=== PATIENT | female | born 1965 | race Caucasian/White ===

== ENCOUNTER 2021-03-13 12:44 | Emergency (ER) | payer OTHER ==
[~2021-03-13] VITALS: Ht 160 cm; Wt 101.6 kg
== END 2021-03-13 16:27 | disposition home or self-care (01) ==
LOC: ER1 12:44
DX: Z23 Encounter for immunization (principal); U07.1 COVID-19; Z90.710 Acquired absence of both cervix and uterus; Z79.899 Other long term (current) drug therapy; Z88.2 Allergy status to sulfonamides
CPT/HCPCS: 99283; M0239

== ENCOUNTER → 2021-03-21 | Outpatient (CLI) | payer OTHER ==
[2021-03-21 13:31] LABS: HEMOGLOBIN 13.6 gm/dl (12.3-15.3); WHITE BLOOD COUNT 11.6 K/UL (4.5-11.0)
[2021-03-21 14:32] LABS: BUN/CREATININE RATIO 37 (0-10)
== END ==
LOC: LAB 12:31
PROVIDERS: Emergency Medicine
DX: U07.1 COVID-19 (principal); J20.9 Acute bronchitis, unspecified; M62.81 Muscle weakness (generalized); R53.83 Other fatigue; R91.1 Solitary pulmonary nodule
CPT/HCPCS: 71046; 80053; 84443; 85027; 85379

== ENCOUNTER → 2021-05-09 | Outpatient (CLI) | payer OTHER ==
[2021-05-09 10:43] LABS: HEMOGLOBIN 13.1 gm/dl (12.3-15.3); RED BLOOD COUNT 4.61 M/UL (4.00-5.10); WHITE BLOOD COUNT 8.5 K/UL (4.5-11.0)
[2021-05-09 11:29] LABS: BUN/CREATININE RATIO 36 (0-10)
[2021-05-10 07:11] LABS: VITAMIN D, 25-HYDROXY 66.9 ng/mL (30.0-100.0)
[2021-05-10 08:13] LABS: PROGESTERONE 0.6 ng/mL (.)
[2021-05-14 20:09] LABS: TESTOSTERONE, SERUM 38 ng/dL (4-50)
== END ==
LOC: LAB 09:47
PROVIDERS: Nurse Practitioner Family
DX: E55.9 Vitamin D deficiency, unspecified (principal); N95.1 Menopausal and female climacteric states; Z01.419 Encounter for gynecological examination (general) (routine) without abnormal findings; Z79.890 Hormone replacement therapy
CPT/HCPCS: 36415; 80053; 82627; 83036; 84144; 84402; 84403; 84443; 85025

== ENCOUNTER → 2021-06-06 | Outpatient (CLI) | payer OTHER ==
[2021-06-06 15:17] LABS: HEMOGLOBIN 13.3 gm/dl (12.3-15.3); RED BLOOD COUNT 4.63 M/UL (4.00-5.10)
[2021-06-06 15:40] LABS: BUN/CREATININE RATIO 24 (0-10)
== END ==
LOC: LAB 13:53
PROVIDERS: Nurse Practitioner
DX: R07.89 Other chest pain (principal); R53.83 Other fatigue
CPT/HCPCS: 80053; 84443; 85025; 85379; 93005

== ENCOUNTER → 2021-06-17 | Outpatient (CLI) | payer OTHER ==
[2021-06-17 10:44] LABS: RED BLOOD COUNT 4.52 M/UL (4.00-5.10); WHITE BLOOD COUNT 6.6 K/UL (4.5-11.0)
[2021-06-17 11:33] LABS: BUN/CREATININE RATIO 27 (0-10)
[2021-06-18 07:13] LABS: ANTISTREPTOLYSIN O AB 84.5 IU/mL (0.0-200.0); RHEUMATOID ARTHRITIS FACTOR <10.0 IU/mL (0.0-13.9); VITAMIN D, 25-HYDROXY 71.2 ng/mL (30.0-100.0)
[2021-06-18 08:15] LABS: ESTRADIOL 23.1 pg/mL (.); FSH 50.5 mIU/mL (.); LUTEINIZING HORMONE(LH) 37.5 mIU/mL (.); PROLACTIN 10.4 ng/mL (4.8-23.3)
[2021-06-18 10:15] LABS: INSULIN 6.8 uIU/mL (2.6-24.9)
[2021-06-19 11:15] LABS: CREATININE, URINE 131.4 mg/dL (Not Estab.)
[2021-06-21 10:14] LABS: TESTOSTERONE, SERUM 10 ng/dL (4-50)
== END ==
LOC: LAB 09:30
PROVIDERS: Nurse Practitioner Family
DX: Z13.1 Encounter for screening for diabetes mellitus (principal); Z13.220 Encounter for screening for lipoid disorders; Z00.00 Encounter for general adult medical examination without abnormal findings; M25.50 Pain in unspecified joint; J45.909 Unspecified asthma, uncomplicated; R07.9 Chest pain, unspecified; R53.83 Other fatigue; I10 Essential (primary) hypertension; E53.8 Deficiency of other specified B group vitamins; E55.9 Vitamin D deficiency, unspecified; R23.2 Flushing; L68.0 Hirsutism; E66.01 Morbid (severe) obesity due to excess calories; R35.0 Frequency of micturition
CPT/HCPCS: 80053; 80061; 81001; 82043; 82570; 82607; 82670; 83001; 83002; 83036; 84146; 84402; 84403; 84439; 84443; 84550; 85025; 85652; 86038; 86060; 86141; 86431

== ENCOUNTER → 2021-06-23 | Outpatient (CLI) | payer OTHER | LOC: RAD 11:11 | DX: M25.511 Pain in right shoulder (principal); R06.02 Shortness of breath; M47.22 Other spondylosis with radiculopathy, cervical region; M47.816 Spondylosis without myelopathy or radiculopathy, lumbar region; M19.011 Primary osteoarthritis, right shoulder | CPT/HCPCS: 71046; 72040; 72072; 72100; 73030 ==

== ENCOUNTER → 2021-07-03 | Outpatient (CLI) | payer OTHER | LOC: KOH-I 08:00 | DX: R91.1 Solitary pulmonary nodule (principal); R29.2 Abnormal reflex; I31.3 Pericardial effusion (noninflammatory) | CPT/HCPCS: 71250 ==

== ENCOUNTER → 2021-07-04 | Outpatient (CLI) | payer OTHER | LOC: RAD 13:08 | DX: R29.2 Abnormal reflex (principal) | CPT/HCPCS: 70551 ==

== ENCOUNTER → 2021-07-10 | Outpatient (CLI) | payer OTHER | LOC: ECHO 10:39 → NM 15:00 | DX: R07.9 Chest pain, unspecified (principal); R06.02 Shortness of breath; R68.89 Other general symptoms and signs; I49.3 Ventricular premature depolarization | CPT/HCPCS: ECHO; 93306 ==

== ENCOUNTER → 2021-07-14 | Outpatient (CLI) | payer OTHER | LOC: EROP 17:12 | DX: Z20.822 Contact with and (suspected) exposure to COVID-19 (principal) | CPT/HCPCS: U0002 ==

== ENCOUNTER → 2022-06-30 | Outpatient (CLI) | payer OTHER | LOC: EXRD 15:06 | DX: R10.9 Unspecified abdominal pain (principal) | CPT/HCPCS: 74018 ==